=== PATIENT | female | born 1980 | race Caucasian/White ===

== ENCOUNTER 2018-12-23 06:02 | Emergency (ER) | payer MEDICAID ==
[~2018-12-23] VITALS: Ht 149.9 cm; Wt 42.3 kg
[~2018-12-23 06:02] MED LIST: BENADRYL25 MG PO; DEMEROL50 MG PO; FLAGYL500 MG PO; MACROBID100 MG PO; MOTRIN600 MG PO; PRENATAL COMPLE1 TAB PO; VISTARIL50 MG PO
[2018-12-23 06:07] VITALS: Ht 149.9 cm; Wt 42.3 kg
[2018-12-23] MEDS ORDERED: DEPRESSION MEDS (06:08)
[2018-12-23] MEDS ORDERED: ELAVIL75 MG (06:09)
[2018-12-23] MEDS ORDERED: ABX (06:09)
[2018-12-23 06:32] VITALS: BP 129/88
== END 2018-12-23 06:34 | disposition home or self-care (01) ==
LOC: D.ER 06:02
DX: N64.4 Mastodynia (principal); N64.9 Disorder of breast, unspecified

== ENCOUNTER → 2020-06-25 13:42 | Outpatient (CLI) | payer MEDICAID ==
[2018-12-23 06:07] VITALS: BMI 18.8
[~2020-06-25 13:42] MED LIST changes: +ABX; +DEPRESSION MEDS; +ELAVIL75 MG
[2020-06-25 14:27] LABS: BASOPHILS 0.6 % (0-2); EOSINOPHILS 4.1 % (0-7); HEMATOCRIT 39.4 % (36.0-48.0); HEMOGLOBIN 12.7 g/dL (12-16); IMMATURE GRANULOCYTES 0.2 % (0-5); LYMPHOCYTE ABS# 1.67 10x3/uL (1.18-3.74); LYMPHOCYTES 26.6 % (15-50); MCH 28.3 pg (26.0-34.0); MCHC 32.2 g/dL (31.0-37.0); MCV 87.9 fL (80.0-100.0); MEAN PLATELET VOLUME 8.3 fL (7.4-10.4); MONOCYTES 11.8 % (2-11); NEUTROPHIL ABS# 3.56 10x3/uL (1.56-6.13); NEUTROPHILS 56.7 % (40-80); PLATELET COUNT 369 10x3/uL (130-400); RBC 4.48 10x6/uL (4.00-5.40); RDW 13.6 % (11.5-14.5); WBC 6.3 10x3/uL (4.8-10.8)
[2020-06-25 14:29] LABS: ALBUMIN 3.3 g/dL (3.4-5.0); ANION GAP 8.4 mmol/L (8-16); BILIRUBIN - TOTAL 0.17 mg/dL (0.2-1.3); CARBON DIOXIDE 32.9 mmol/L (21.0-32.0); CREATININE - SERUM 0.9 mg/dL (0.6-1.3); POTASSIUM - SERUM 3.3 mmol/L (3.5-5.1)
[2020-06-25 15:47] LABS: ERYTHROCYTE SEDIMENTATION RATE 62 mm/hr (0-20)
[2020-06-26 10:12] LABS: HEPATITIS C ANTIBODY <0.1 (0.0-0.9)
== END | disposition home or self-care (01) ==
LOC: D.LAB 13:42
PROVIDERS: ATTEND Internal Medicine Gastroenterology
DX: K51.90 Ulcerative colitis, unspecified, without complications (principal); R10.9 Unspecified abdominal pain; R10.31 Right lower quadrant pain

== ENCOUNTER → 2020-07-18 15:34 | Outpatient (CLI) | payer MEDICAID ==
[2018-12-23 06:07] VITALS: BMI 18.8
== END | disposition home or self-care (01) ==
LOC: D.LAB 15:34
PROVIDERS: ATTEND Internal Medicine Gastroenterology
DX: K50.90 Crohn's disease, unspecified, without complications (principal)

== ENCOUNTER → 2020-08-29 11:34 | Outpatient (CLI) | payer MEDICAID ==
[2018-12-23 06:07] VITALS: BMI 18.8
[2020-08-29 13:25] LABS: ERYTHROCYTE SEDIMENTATION RATE 12 mm/hr (0-20)
== END | disposition home or self-care (01) ==
LOC: D.LAB 11:34
PROVIDERS: ATTEND Internal Medicine Gastroenterology
DX: K50.10 Crohn's disease of large intestine without complications (principal)